=== PATIENT | male | born 1945 | race Two or more races ===

== ENCOUNTER 2017-04-26 22:52 | Inpatient (IN) | payer MEDICARE, OTHER ==
[~2017-04-26] VITALS: Ht 172.7 cm; Wt 72.6 kg
[2017-04-26] MEDS ORDERED: IPRATROPIUM NEB FS 0.5 MG/2.5 ML AMPUL.NEB NEB ONE (23:00)
[2017-04-26] MEDS ORDERED: methylPREDNISolone SOD SUCC 125 MG/2ML VIAL IV ONE (23:00)
[2017-04-26] MEDS ORDERED: ALBUTEROL FS 2.5 MG/3 ML VIAL.NEB CONTNEB ONE (23:00)
[2017-04-26] MEDS ORDERED: IPRATROPIUM NEB FS 0.5 MG/2.5 ML AMPUL.NEB ONE (23:05)
[2017-04-26] MEDS ORDERED: ALBUTEROL FS 2.5 MG/3 ML VIAL.NEB ONE (23:05)
[2017-04-26] MEDS ORDERED: methylPREDNISolone SOD SUCC 125 MG/2ML VIAL ONE (23:07)
--- NOTE | 2017-04-26 23:15 | NUR ---
71 Y/O MALE PLACED IN BED 6 C/O SOB. PT CURRENTLY ON A BREATHING TREATMENT.
--- NOTE | 2017-04-26 23:21 | NUR ---
BLOOD DRAWN AND SENT. IV SOLUMEDROL GIVEN.
[2017-04-26 23:31] LABS: BASOPHILS % (AUTO) 0.6 % (0.0-2.0); EOSINOPHILS # (AUTO) 0.2 /CMM (0.0-0.7); EOSINOPHILS % (AUTO) 4.4 % (0.0-6.0); HEMATOCRIT 36 % (39-51); LYMPHOCYTES # (AUTO) 1.1 /CMM (0.8-4.8); LYMPHOCYTES % (AUTO) 25.7 % (20.0-44.0); MEAN CORPUSCULAR HEMOGLOBIN 29 PG (26.0-33.0); MEAN CORPUSCULAR HGB CONC 33 g/dl (31.0-36.0); MEAN CORPUSCULAR VOLUME 87 fL (80-96); MONOCYTES # (AUTO) 0.6 /CMM (0.1-1.30); MONOCYTES % (AUTO) 14.6 % (2.0-12.0); NEUTROPHILS # (AUTO) 2.4 /CMM (1.8-8.9); NEUTROPHILS % (AUTO) 54.7 % (43.0-81.0); PLATELET COUNT (AUTO) 195 /CMM (150-450); RDW COEFFICIENT OF VARIATION 15.2 (11.5-15.0); RED BLOOD CELL COUNT(AUTO) 4.12 MIL/uL (4.5-6.0); WHITE BLOOD COUNT (AUTO) 4.3 K/uL (4.3-11.0)
[2017-04-26 23:47] LABS: CALCIUM, SERUM 8.7 mg/dL (8.5-10.1); CARBON DIOXIDE 27 mmol/L (21-32); CHLORIDE 107 mmol/L (98-107); CREATININE 0.8 mg/dL (0.6-1.3); GLUCOSE 102 mg/dL (74-106); POTASSIUM 4.6 mmol/L (3.5-5.1); SODIUM SERUM 143 mmol/L (136-145); UREA NITROGEN, BLOOD 19 mg/dL (7-18)
[2017-04-26 23:50] LABS: TROPONIN I 0.097 ng/mL (0.00-0.056)
[2017-04-26 23:55] LABS: ALANINE AMINOTRANSFERASE 28 U/L (12-78); ALBUMIN 3.2 g/dL (3.4-5.0); ALKALINE PHOSPHATASE 95 U/L (46-116); ASPARTATE AMINOTRANSFERASE 24 U/L (15-37); B-TYPE NATRIURETIC PEPTIDE 5019 PG/ML (0-125); BILIRUBIN,DIRECT 0.1 mg/dL (0.0-0.2); BILIRUBIN,TOTAL 0.6 mg/dL (0.2-1.0); TOTAL PROTEIN, SERUM 6.7 g/dL (6.4-8.2)
[2017-04-27] MEDS ORDERED: ASPIRIN 325 MG TABLET PO ONE
[2017-04-27] MEDS ORDERED: IOHEXOL-350 100 ML VIAL IV ONE ×2 (00:03→00:19)
[2017-04-27] MEDS ORDERED: CT SWABBABLE VALVE TRANS SET 1 EA INFUS.SET MC ONE (00:03)
[2017-04-27] MEDS ORDERED: IV NS 0.45% 500 ML IV ONE (00:04)
--- NOTE | 2017-04-27 00:30 | NUR ---
PT TO CT ANGIO AND BACK
[2017-04-27] MEDS ORDERED: ASPIRIN 325 MG TABLET ONE (00:31)
--- NOTE | 2017-04-27 01:07 | NUR ---
PT TO BE ADMITTED TO TELE ROOM 107. REPORT CALLED TO FLOOR AND GIVEN TO PENELOPE. DX - CHF. PT HAS A PORTACATH ON UPPER RIGHT SIDE OF CHEST. CXR SHOWS MILD TO MODERATE PULOMANARY EDEMA. PREPARING PT FOR TRANSFER TO FLOOR.
[2017-04-27] MEDS ORDERED: ACETAMINOPHEN 325 MG TABLET PO PRN (01:30)
[2017-04-27] MEDS ORDERED: MAG HYDROX/AL HYDROX/SIMETH 30 ML UDC PO PRN (01:30)
[2017-04-27] MEDS ORDERED: HYDROCODONE/APAP 5/325MG 1 EACH TABLET PO PRN (01:30)
[2017-04-27] MEDS ORDERED: MAGNESIUM HYDROXIDE 30 ML UDC PO PRN (01:30)
[2017-04-27] MEDS ORDERED: FUROSEMIDE 40 MG/4 ML VIAL IV ONE (01:30)
[2017-04-27] MEDS ORDERED: ONDANSETRON HCL/PF 4 MG/2 ML VIAL IVP PRN (01:30)
--- NOTE | 2017-04-27 01:35 | NUR ---
HEALTH CLAIMS EXAMINER NOTES. RECEIVED REPORT AND PATIENT FROM MERCEDES LUIS NURSE. PATIENT AMBULATED INTO THE UNIT TO HIS ROOM. PATIENT IS ALERT AND ORIENTED X4. SPEAKS MOSTLY [place]. SPEAKS [place], ABLE TO EXPRESS NEEDS. CALL LIGHT WITHIN REACH. ORIENTED TO UNIT AND TO STAFF. ADMITTED WITH A DX OF CHF.
--- NOTE | 2017-04-27 01:38 | NUR ---
PT TRANSFERRED TO [facility] 107 PER ACLS PROTOCOL.
[2017-04-27] MEDS ORDERED: FUROSEMIDE 40 MG/4 ML VIAL ONE (02:42)
[2017-04-27 04:00] VITALS: BP 109/62
--- NOTE | 2017-04-27 07:10 | NUR ---
RN INITIAL NOTE PATIENT RECEIVED IN BED. PATIENT IS AWAKE, ALERT AND ORIENTED. SPEAKS [place] PRIMARILY BUT UNDERSTANDS [place]. ABLE TO MAKE NEEDS KNOWN. NO S/S OF PAIN OR DISCOMFORT. DENIES PAIN AT THIS TIME. SINUS TACHY ON TELE MONITOR. RESPIRATIONS ARE EVEN AND UNLABORED. NO S/S OF RESPIRATORY DISTRESS OR SOB. SATING WELL ON ROOM AIR. SKIN IS WARM AND DRY TO TOUCH. IV SITE FLUSHED, PATENT. SAFETY PRECAUTIONS IMPLEMENTED, BED IN LOCKED, LOW POSITION WITH TWO SIDE RAILS UP. CALL LIGHT AND BELONGINGS WITHIN EASY REACH. WILL CONTINUE TO MONITOR.
[2017-04-27] MEDS: ALBUTEROL FS 2.5 MG/0.5 ML VIAL.NEB NEB SCH ×3 (07:35→19:49)
[2017-04-27 08:00] VITALS: BP 124/72
[2017-04-27] MEDS: methylPREDNISolone SOD SUCC 40 MG/ML VIAL IV SCH ×3 (08:20→16:44)
[2017-04-27] MEDS: ASPIRIN 81 MG TAB.CHEW PO SCH (08:20)
[2017-04-27] MEDS ORDERED: DIGO125T PO (08:50)
[2017-04-27] MEDS ORDERED: SPIR25TA PO (08:50)
[2017-04-27] MEDS ORDERED: DUTA0.5C PO (08:50)
[2017-04-27] MEDS ORDERED: ROSU10TA PO (08:50)
[2017-04-27] MEDS ORDERED: FURO20TA4 PO (08:50)
[2017-04-27] MEDS ORDERED: EZET10TA PO (08:50)
[2017-04-27] MEDS ORDERED: LISI-607 PO (08:50)
[2017-04-27] MEDS ORDERED: TAMS0.4C34 PO (08:50)
[2017-04-27] MEDS ORDERED: CARV3.122 PO (08:50)
[2017-04-27 10:18] LABS: THYROID STIMULATING HORMONE 1.067 uIU/mL (0.358-3.74)
[2017-04-27 10:39] LABS: MAGNESIUM 1.7 mg/dL (1.8-2.4); PHOSPHORUS 4.5 mg/dL (2.5-4.9)
[2017-04-27] MEDS: FUROSEMIDE 40 MG/4 ML VIAL IV SCH ×3 (11:17→20:17)
[2017-04-27] MEDS: LISINOPRIL (5MG) 5 MG TABLET PO SCH (11:18)
[2017-04-27] MEDS: CLOPIDOGREL BISULFATE 75 MG TABLET PO SCH (11:18)
[2017-04-27] MEDS: EZETIMIBE 10 MG TABLET PO SCH (11:18)
[2017-04-27] MEDS: SPIRONOLACTONE 25 MG TABLET PO SCH (11:18)
[2017-04-27] MEDS: CARVEDILOL 3.125 MG TABLET PO SCH ×3 (11:18→17:00)
[2017-04-27] MEDS: DUTASTERIDE (0.5 MG) 0.5 MG CAPSULE PO SCH (11:18)
[2017-04-27 12:00] VITALS: BP 127/63
[2017-04-27] MEDS: DIGOXIN 0.125 MG TABLET PO SCH (12:47)
[2017-04-27 16:00] VITALS: BP 99/54
--- NOTE | 2017-04-27 19:09 | NUR ---
RN CLOSING NOTE CARRIED OUT ALL MD ORDERS, ANTICIPATED PT NEEDS. KEPT CLEAN AND DRY. WILL GIVE REPORT TO PM RN./
--- NOTE | 2017-04-27 19:15 | NUR ---
RN INITIAL NOTES RECEIVED PATIENT IN BED, AWAKE AND ALERT, ORIENTED. PATIENT DENIES ANY PAIN AND DISCOMFORT. DENIES ANY SOB. PATIENT ON 2LPM OF O2 VIA NC, STILL WITH DIMINISHED BREATH SOUNDS ON AUSCULTATION. PATIENT WITH L AC PIV, FLUSHED AND PATENT, NO SIGNS OF INFILTRATION. PATIENT IS SR ON TELE WITH HR OF 96. PATIENT'S NEEDS ANTICIPATED AND MET AT THIS TIME. BED IN LOW AND LOCKED POSITION. CALL LIGHT IN REACH. WILL MONITOR CLOSELY.
--- NOTE | 2017-04-27 19:50 | NUR ---
RN NOTES CHART REVIEWED, PATIENT'S MAGNESIUM LEVEL NOTED TO BE 1.7. CALLED AND SPOKE WITH AILYN PARRISH, WAS ABLE TO OBTAIN ORDER FOR MG SUPPLEMENT. ORDER NOTED AND CARRIED OUT. WILL F/UP WITH PHARMACY.
[2017-04-27 20:00] VITALS: BP 105/51
[2017-04-27] MEDS ORDERED: MAGNESIUM OXIDE 400 MG TABLET PO ONE (20:00)
[2017-04-27] MEDS ORDERED: FUROSEMIDE 40 MG/4 ML VIAL IV SCH (20:30)
--- NOTE | 2017-04-27 20:38 | NUR ---
RN NOTE - LASIX ADMINISTRATION UPON REVIEW OF CHART AND eMAR, NOTED PATIENT TO HAVE A SCHEDULED LASIX 40MG IV DOSE 3 OF 3 DUE AT 1900. ATTEMPTED TO PULL OUT FROM OMNICELL THE SAID MEDICATION, BUT MEDICATION IS NO LONGER ACTIVE ON THE OMNICELL. CALLED PHARMACY AND SPOKE WITH ROSSANA ADAN TO ACTIVATE THE MEDICATION SO I CAN PULL OUT THE MEDICATION. MEDICATION ACTIVATED BY PHARMACY, I WAS ABLE TO SCAN LASIX DUE AT 1900, ADMINISTERED ORDERED. LASIX 40MG IV X1 SCHEDULED FOR 2029, NON ADMINISTERED. DUPLICATE ORDER. CN MADE AWARE.
--- NOTE | 2017-04-27 21:18 | NUR ---
RN NOTES PATIENT REQUESTING FOR SLEEPING MEDICATION. PER PATIENT HE TAKES RESTORIL 30MG AT NIGHT AT HOME. CALLED AND SPOKE WITH AILYN PARRISH, WAS ABLE TO OBTAIN ORDER. ORDER NOTED AND CARRIED OUT. CN MADE AWARE.
[2017-04-27] MEDS ORDERED: TEMAZEPAM 15 MG CAPSULE ONE (21:19)
[2017-04-27] MEDS ORDERED: Medication Not On Formulary EA (Rosuvastatin Calcium (Crestor) 10 MG) PO SCH (22:00)
[2017-04-27] MEDS: TEMAZEPAM 15 MG CAPSULE PO PRN (23:28)
[2017-04-27] MEDS: ATORVASTATIN 10 MG TABLET PO SCH (23:28)
[2017-04-27] MEDS: TAMSULOSIN 0.4 MG CAP.SR.24H PO SCH (23:28)
[2017-04-28] VITALS: BP 99/46
[2017-04-28] MEDS: ALBUTEROL FS 2.5 MG/0.5 ML VIAL.NEB NEB SCH ×4 (00:59→20:11)
--- NOTE | 2017-04-28 02:00 | NUR ---
RN NOTES PATIENT SLEEPING COMFORTABLY IN BED, NO DISTRESS AND NO DISCOMFORT. EASILY AROUSABLE WITH VERBAL AND TACTILE STIMULI. REMAINS SR ON TELE WITH HR IN THE 90s. SATURATING AT 95% WITH 2LPM OF O2 VIA NC. RESTORIL EFFECTIVE, NO ACUTE CHANGE IN CONDITION.
[2017-04-28 04:00] VITALS: BP 91/48
--- NOTE | 2017-04-28 06:49 | NUR ---
RN CLOSING NOTES PATIENT SLEEPING COMFORTABLY. NO DISTRESS. REMAINS SR ON TELE. 2LPM OF O2 VIA NC IN PLACE. IVF ORDERED. ALL DUE MEDS GIVEN ORDERED. AM LABS DRAWN. PATIENT'S NEEDS ANTICIPATED AND MET. SAFETY AND COMFORT ENSURED. BED IN LOW AND LOCKED POSITION. CALL LIGHT IN REACH. WILL ENDORSE ACCORDINGLY FOR CONTINUITY OF SHIFT.
--- NOTE | 2017-04-28 07:15 | NUR ---
RN INITIAL NOTES: REC'D PT AWAKE ON BED, A/O X 3-4, NOT IN ANY DISTRESS, DENIES ANY PAIN/DISCOMFORT AT THIS TIME. ON TELEMONITOR, SR. ON ROOM AIR, NO SOB. HAS R CW PORTACATH. HAS L AC G18, SL, FLUSHED, PATENT & INTACT W/ NO S/SX OF INFECTION/INFILTRATION NOTED. PROVIDED COMFORT & SAFETY MEASURES. BED KEPT LOW & IN LOCKED POS. CALL LIGHT PLACED W/IN REACH. WILL CONTINUE TO MONITOR AND ATTEND PT NEEDS.
[2017-04-28 07:23] LABS: TROPONIN I 0.062 ng/mL (0.00-0.056)
[2017-04-28 07:32] LABS: ALANINE AMINOTRANSFERASE 20 U/L (12-78); ALBUMIN 2.9 g/dL (3.4-5.0); ALKALINE PHOSPHATASE 75 U/L (46-116); ASPARTATE AMINOTRANSFERASE 15 U/L (15-37); BILIRUBIN,TOTAL 0.4 mg/dL (0.2-1.0); CALCIUM, SERUM 8.5 mg/dL (8.5-10.1); CARBON DIOXIDE 31 mmol/L (21-32); CHLORIDE 103 mmol/L (98-107); CREATININE 1.1 mg/dL (0.6-1.3); GLUCOSE 117 mg/dL (74-106); MAGNESIUM 1.8 mg/dL (1.8-2.4); POTASSIUM 3.6 mmol/L (3.5-5.1); SODIUM SERUM 142 mmol/L (136-145); TOTAL PROTEIN, SERUM 6.1 g/dL (6.4-8.2); UREA NITROGEN, BLOOD 31 mg/dL (7-18)
[2017-04-28 08:00] VITALS: BP 97/52
[2017-04-28] MEDS: EZETIMIBE 10 MG TABLET PO SCH (08:24)
[2017-04-28] MEDS: ASPIRIN 81 MG TAB.CHEW PO SCH (08:24)
[2017-04-28] MEDS: SPIRONOLACTONE 25 MG TABLET PO SCH (08:24)
[2017-04-28] MEDS: FUROSEMIDE 20 MG TABLET PO SCH (08:24)
[2017-04-28] MEDS: CLOPIDOGREL BISULFATE 75 MG TABLET PO SCH (08:24)
[2017-04-28] MEDS: DUTASTERIDE (0.5 MG) 0.5 MG CAPSULE PO SCH (08:24)
[2017-04-28] MEDS: methylPREDNISolone SOD SUCC 40 MG/ML VIAL IV SCH ×3 (08:25→16:36)
[2017-04-28] MEDS: CARVEDILOL 3.125 MG TABLET PO SCH ×2 (08:26→16:36)
[2017-04-28] MEDS: LISINOPRIL (5MG) 5 MG TABLET PO SCH (08:26)
[2017-04-28] MEDS: Z GUARD REMEDY 2 OZ OINT TP PRN (08:27)
[2017-04-28 08:33] LABS: BASOPHILS % (AUTO) 0.2 % (0.0-2.0); EOSINOPHILS % (AUTO) 0.1 % (0.0-6.0); HEMATOCRIT 32 % (39-51); HEMOGLOBIN 10.6 g/dL (13.5-17.5); LYMPHOCYTES # (AUTO) 0.7 /CMM (0.8-4.8); LYMPHOCYTES % (AUTO) 10.3 % (20.0-44.0); MEAN CORPUSCULAR HEMOGLOBIN 29 PG (26.0-33.0); MEAN CORPUSCULAR HGB CONC 33 g/dl (31.0-36.0); MEAN CORPUSCULAR VOLUME 87 fL (80-96); MONOCYTES # (AUTO) 0.6 /CMM (0.1-1.30); MONOCYTES % (AUTO) 8.5 % (2.0-12.0); NEUTROPHILS # (AUTO) 5.4 /CMM (1.8-8.9); NEUTROPHILS % (AUTO) 80.9 % (43.0-81.0); PLATELET COUNT (AUTO) 195 /CMM (150-450); RDW COEFFICIENT OF VARIATION 15.2 (11.5-15.0); RED BLOOD CELL COUNT(AUTO) 3.68 MIL/uL (4.5-6.0); WHITE BLOOD COUNT (AUTO) 6.7 K/uL (4.3-11.0)
[2017-04-28 10:09] LABS: CHOLESTEROL 129 mg/dL (<200); HDL CHOLESTEROL 34 mg/dL (40-60); LDL 82 mg/dL (0-99); THYROID STIMULATING HORMONE 0.418 uIU/mL (0.358-3.74); TRIGLYCERIDES 101 mg/dL (30-150)
--- NOTE | 2017-04-28 10:38 | NUR ---
RN NOTES: PT SEEN & EXAMINED BY DR. KARIMI AND DR. FUCHS.
[2017-04-28] MEDS: DIGOXIN 0.125 MG TABLET PO SCH (13:25)
[2017-04-28 16:00] VITALS: BP 107/58
--- NOTE | 2017-04-28 18:44 | NUR ---
RN CLOSING NOTES: NO ACUTE CHANGES NOTED W/IN SHIFT. PT TOLERATED ROOM AIR, NO SOB. R CW PORTACATH NOTED. L AC G18, SL, KEPT PATENT & INTACT W/ NO S/SX OF INFECTION/INFILTRATION NOTED. KEPT WELL RESTED. NEEDS ATTENDED. BED KEPT LOW & IN LOCKED POS. CALL LIGHT PLACED W/IN REACH. WILL ENDORSE TO PM RN FOR LEBRON.
--- NOTE | 2017-04-28 19:15 | NUR ---
RN INITIAL NOTES RECEIVED PATIENT IN BED, AWAKE AND ALERT, ORIENTED. PATIENT DENIES ANY PAIN AND DISCOMFORT. ON ROOM AIR WITH NO C/O SOB, NO RESPIRATORY DISTRESS NOTED. PATIENT ENCOURAGED WITH AMBULATION TOLERATED, PATIENT WITH STEADY GAIT, FALL PRECAUTIONS OBSERVED. NEEDS ANTICIPATED AND MET. PATIENT WITH L AC PIV, FLUSHED AND PATENT, NO SIGNS OF INFILTRATION. BED IN LOW AND LOCKED POSITION. CALL LIGHT IN REACH. WILL MONITOR CLOSELY.
[2017-04-28 20:00] VITALS: BP 110/67
[2017-04-28] MEDS: ATORVASTATIN 10 MG TABLET PO SCH (22:50)
[2017-04-28] MEDS: TEMAZEPAM 15 MG CAPSULE PO PRN (22:50)
[2017-04-28] MEDS: TAMSULOSIN 0.4 MG CAP.SR.24H PO SCH (22:50)
[2017-04-29] MEDS: ALBUTEROL FS 2.5 MG/0.5 ML VIAL.NEB NEB SCH ×2 (01:57→07:45)
[2017-04-29 04:00] VITALS: BP 112/60
--- NOTE | 2017-04-29 06:44 | NUR ---
RN CLOSING NOTES PATIENT WITH NO ACUTE CHANGE IN CONDITION OBSERVED OVERNIGHT. STABLE ON ROOM AIR WITH NO DISTRESS. NEEDS ANTICIPATED AND MET. AT ALL TIMES. NEEDS ANTICIPATED AND MET. CALL LIGHT IN REACH. WILL ENDORSE ACCORDINGLY FOR CONTINUITY OF CARE.
--- NOTE | 2017-04-29 07:10 | NUR ---
RN INITIAL NOTES: REC'D PT AWAKE ON BED, A/O X 3-4, NOT IN ANY DISTRESS, DENIES ANY PAIN/DISCOMFORT AT THIS TIME. ON ROOM AIR, NO SOB. HAS R CW PORTACATH. HAS L AC G18, SL, FLUSHED, PATENT & INTACT W/ NO S/SX OF INFECTION/INFILTRATION NOTED. PROVIDED COMFORT & SAFETY MEASURES. BED KEPT LOW & IN LOCKED POS. CALL LIGHT PLACED W/IN REACH. WILL CONTINUE TO MONITOR AND ATTEND PT NEEDS.
[2017-04-29 08:00] VITALS: BP 118/58
[2017-04-29 08:53] VITALS: BP 118/58
[2017-04-29] MEDS: CARVEDILOL 3.125 MG TABLET PO SCH (08:53)
[2017-04-29] MEDS: ASPIRIN 81 MG TAB.CHEW PO SCH (08:53)
[2017-04-29] MEDS: LISINOPRIL (5MG) 5 MG TABLET PO SCH (08:53)
[2017-04-29] MEDS: DUTASTERIDE (0.5 MG) 0.5 MG CAPSULE PO SCH (08:53)
[2017-04-29] MEDS: CLOPIDOGREL BISULFATE 75 MG TABLET PO SCH (08:53)
[2017-04-29] MEDS: FUROSEMIDE 20 MG TABLET PO SCH (08:53)
[2017-04-29] MEDS: methylPREDNISolone SOD SUCC 40 MG/ML VIAL IV SCH ×2 (08:53→12:03)
[2017-04-29] MEDS: Z GUARD REMEDY 2 OZ OINT TP PRN (08:54)
[2017-04-29] MEDS: SPIRONOLACTONE 25 MG TABLET PO SCH (08:54)
[2017-04-29] MEDS: EZETIMIBE 10 MG TABLET PO SCH (08:54)
[2017-04-29] MEDS ORDERED: BISACODYL SUPP (10 MG) 10 MG/SUPP.RECT SUPP.RECT RC PRN (10:30)
[2017-04-29] MEDS ORDERED: ZOLPIDEM TARTRATE 5 MG TABLET PO PRN (10:30)
[2017-04-29] MEDS ORDERED: POLYETHYLENE GLYCOL 3350 17 GM POWD.PACK PO PRN (10:30)
[2017-04-29] MEDS ORDERED: LEVOFLOXACIN 500 MG /D5W 100ML 500 MG in PREMIX 1 EA IV SCH (12:00)
[2017-04-29] MEDS: DIGOXIN 0.125 MG TABLET PO SCH (12:05)
--- NOTE | 2017-04-29 12:50 | NUR ---
INTERNATIONAL PROJECT MANAGER NOTES: PT DC'D TO HOME, SELF CARE ORDERED. DC INSTRUCTIONS EXPLAINED TO THE PT W/ VERBALIZATION OF UNDERSTANDING. DC DOCUMENTS WELL MED PRESCRIPTION PROVIDED. IV ACCESS REMOVED, PRESSURE DRESSING APPLIED, NO SIGN OF INFECTION NOTED. PT LEFT FACILITY IN STABLE CONDITION, AMBULATORY W/ STEADY GAIT, ACCOMPANIED BY . NO CONCERNS IDENTIFIED AT THIS TIME.
== END 2017-04-29 12:45 | disposition home or self-care (01) | DRG 280 ==
LOC: ER 22:56 → TELE1 04-27 00:30 → MEDSG1 04-28 11:20
PROVIDERS: ADMIT Nurse Practitioner Acute Care; ATTEND Nurse Practitioner Acute Care
DX: I21.4 Non-ST elevation (NSTEMI) myocardial infarction (principal); I50.33 Acute on chronic diastolic (congestive) heart failure; I11.0 Hypertensive heart disease with heart failure; D63.8 Anemia in other chronic diseases classified elsewhere; E83.42 Hypomagnesemia; I25.10 Atherosclerotic heart disease of native coronary artery without angina pectoris; J45.909 Unspecified asthma, uncomplicated; Z98.61 Coronary angioplasty status
CPT/HCPCS: 36415; 71010-TC; 80048-TC; 80053-TC; 80061-TC; 80076-TC; 80162-TC; 82306; 82728-TC; 83540-TC; 83605-TC; 83735-TC; 83880; 84100-TC; 84439-TC; 84443-TC; 84484-TC; 85025-TC; 87040-TC; 87081-TC; A4216; A4606; J1940; J1956; J2920; J2930; J3490; J7030; Q9967